=== PATIENT | female | born 1970 | race Caucasian/White ===

== ENCOUNTER 2017-09-27 13:43 | Emergency (ER) | payer BC ==
--- NOTE | 2017-09-27 14:53 | UC ---
Hand/Wrist HPI - HPI Summary HPI Summary: Pain at base of R thumb since about 9am this morning. Has hip prosthetic from 10 years ago. Denies any recent or remote trauma, no prior surgeries, no animal/ human bites or penetrating injury. - History Of Current Complaint Chief Complaint: UCUpperExtremity Stated Complaint: HAND INJURY Hx Obtained From: Patient Hx Last Menstrual Period: 09/20/17 Onset/Duration: Sudden Onset, Lasting Hours Pain Intensity: 7 Character Of Pain: Dull, Aching, Stiffness Aggravating Factor(s): Movement Alleviating Factor(s): Nothing Associated Signs And Symptoms: Positive: Swelling Related History: Dominant Hand Right - Allergies/Home Medications Allergies/Adverse Reactions: Allergies Allergy/AdvReac Type Severity Reaction Status Date / Time No Known Allergies Allergy Verified 09/27/17 14:24 Home Medications: Home Medications LevoCETirizine TAB (NF) [Xyzal TAB (NF)] 5 mg PO BEDTIME 09/27/17 [History Confirmed 09/27/17] PMH/Surg Hx/FS Hx/Imm Hx Previously Healthy: Yes - Surgical History Surgical History: Yes Surgery Procedure, Year, and Place: left hip replacement 03/2007 - Family History Known Family History: Negative: Blood Disorder - Social History Occupation: Employed Full-time Lives: With Family Alcohol Use: Weekly Substance Use Type: None Smoking Status (MU): Never Smoked Tobacco Review of Systems Constitutional: Negative Skin: Negative Eyes: Negative ENT: Negative Respiratory: Negative Cardiovascular: Negative Gastrointestinal: Negative Genitourinary: Negative Motor: Negative Neurovascular: Negative Musculoskeletal: Arthralgia Neurological: Negative Psychological: Negative Is Patient Immunocompromised?: No All Other Systems Reviewed And Are Negative: Yes Physical Exam Triage Information Reviewed: Yes Appearance: Well-Appearing, No Pain Distress, Well-Nourished Vital Signs: Initial Vital Signs Temp 99.7 F 09/27/17 14:26 Pulse 79 09/27/17 14:26 Resp 16 09/27/17 14:26 BP 129/91 09/27/17 14:26 Pulse Ox 100 09/27/17 14:26 Vital Signs Reviewed: Yes Eye Exam: Normal Eyes: Positive: Conjunctiva Clear ENT Exam: Normal ENT: Positive: Normal ENT inspection, Hearing grossly normal, Pharynx normal, TMs normal Dental Exam: Normal Neck exam: Normal Neck: Positive: Supple, Nontender, No Lymphadenopathy Respiratory Exam: Normal Respiratory: Positive: Chest non-tender, Lungs clear, Normal breath sounds, No respiratory distress, No accessory muscle use Cardiovascular Exam: Normal Cardiovascular: Positive: RRR, No Murmur Musculoskeletal Exam: Other - Pain over R 1st MCP as well as 1st carpometacarpal joint. No visible swelling, redness, or marked tenderness. Musculoskeletal: Positive: Strength Intact, ROM Intact Neurological Exam: Normal Neurological: Positive: Alert Psychological Exam: Normal Skin Exam: Normal Diagnostics - Radiology No standard instances Xray Interpretation: No Acute Changes Radiology Interpretation Completed By: Radiologist Hand/Wrist Course/Dx - Differential Dx/Diagnosis Provider Diagnoses: R thumb arthralgia Discharge - Sign-Out/Discharge Documenting (check all that apply): Discharge - Discharge Plan Condition: Stable Disposition: HOME Patient Education Materials: Arthralgia (ED), Swollen Joint (ED) Referrals: Mary Baum MD [Primary Care Provider] - Vijay Reid MD [Medical Doctor] - 2 Days Additional Instructions: As we discussed, the most likely cause of your thumb pain is osteoarthritis. I do not see worrisome redness, swelling, or other signs of infection at this time. If you do develop redness, stiffness, or fever, I recommend you get seen again right away. For now, take naproxen or ibuprofen and follow up with your PCP or your orthopedics office in the next couple days before you leave [facility] for a recheck. - Billing Disposition and Condition Condition: STABLE Disposition: HOME
--- NOTE | 2017-09-27 15:09 | RAD ---
Indication: Right thumb injury. 3 views of the right thumb reviewed. 3 views of the right thumb demonstrates no fracture. No other bone or joint abnormality is noted. IMPRESSION: No fracture of the right thumb is noted.
[2017-09-27 15:16] VITALS: BP 130/90
== END 2017-09-27 15:30 | disposition home or self-care (01) ==
LOC: UCEAST 13:43
DX: M25.541 Pain in joints of right hand (principal)
CPT/HCPCS: 99211; G0463